=== PATIENT | male | born 1985 | race African-American/Black ===

== ENCOUNTER → 2019-01-29 19:04 | Outpatient (CLI) | payer OTHER, SELFPAY ==
--- NOTE | 2019-01-29 19:11 | DI.MRI.S_ITS ---
PROCEDURE: MR KNEE LT WO CON INDICATIONS: Pain in the left knee. Additional relevant clinical history includes a concern related to frequent locking and pain specifically localized to the medial knee. Concern for a bucket handle tear at the medial meniscus. TECHNIQUE: Noncontrast sagittal PD fast spin echo and T2 fast spin echo with fat saturation, sagittal 3-D FLASH with fat saturation; coronal T1 spin echo and PD fast spin echo with fat saturation, and axial PD fast spin echo with fat saturation through the knee. COMPARISON: None. FINDINGS: Image quality: Excellent. Menisci: The medial and lateral menisci demonstrate normal morphology and internal signal. The meniscal root ligaments appear intact. Cruciate ligaments: The anterior and posterior cruciate ligaments appear intact. Medial structures: The medial collateral ligament appears intact. Visualized portions of the pes anserinus tendons appear normal. No abnormal bursal fluid. Lateral structures: The lateral collateral ligament, long and short heads of the biceps femoris tendon appear intact. The popliteus tendon appears normal. Iliotibial band appears normal. Anterior structures: The quadriceps and patellar tendons appear intact. Patellar alignment is normal. No femoral trochlear dysplasia or ventral trochlear prominence. No edema in the infrapatellar fat pad. Bones and cartilage: No bone marrow contusions or fractures. The cartilage of the medial and lateral femorotibial compartments, as well as the patellofemoral compartment, appears normal in thickness. Joint space: There is physiologic knee joint fluid. No Brandt's cyst. Normal appearing synovial plicae are incidentally noted. IMPRESSION: 1. No explanation for left knee pain. 2. No internal derangement. Dictated by: Enoch Sanchez M.D. on 01/30/2019 at 8:28 Approved by: Fabricio Lombardi M.D. on 01/30/2019 at 10:58
== END ==
PROVIDERS: Visit Provider Student in an Organized Health Care Education/Training Program
DX: M25.562 Pain in left knee (principal)
CPT/HCPCS: 73721